=== PATIENT | female | born 1995 ===

== ENCOUNTER → 2018-04-14 | Outpatient (CLI) | payer BC ==
[~2018-04-14] MED LIST: FLU60SYR36 IM; INSU100V24 SQ; LEVE100034 PO; NOVOLOG SUBQ; PNEI IM; [UNRECOGNIZED DRUG - CODE] SUBQ
== END ==
LOC: LAB 10:57
PROVIDERS: ATTEND Emergency Medicine
DX: E10.9 Type 1 diabetes mellitus without complications (principal)
CPT/HCPCS: 36415; 83036

== ENCOUNTER → 2018-11-09 | Outpatient (CLI) | payer BC ==
[~2018-11-09] MED LIST changes: +CHOL100052 PO
[2018-11-09 15:37] LABS: PLATELET COUNT, AUTOMATED 259 K/uL (150-450)
== END ==
LOC: LAB 15:12
PROVIDERS: ATTEND Emergency Medicine
DX: E10.9 Type 1 diabetes mellitus without complications (principal); G40.909 Epilepsy, unspecified, not intractable, without status epilepticus
CPT/HCPCS: 36415; 82040; 82247; 82306; 82310; 82374; 82435; 82550; 82565; 82607; 82947; 83036; 83540; 83550; 84075; 84132; 84155; 84295; 84443; 84450; 84460; 84520; 85025; 86140